=== PATIENT | male | born 1950 | race Caucasian/White ===

== ENCOUNTER 2021-02-10 21:53 | Inpatient (IN) | payer OTHER ==
[~2021-02-10] VITALS: Ht 172.7 cm; Wt 73.9 kg
--- NOTE | ~2021-02-10 | EMS ---
[address] [address] EMS Patient Care Report Name: ANUJ RAMIRES Room #: REG Maria Del Carmen#: [id number] Admission: 02/10/21 Attend Phys: Discharge: Date of : 52 Report #: [id number] THIS REPORT FOR: //name// Report Transmitted: 02/10/2021 21:[address] [facility] Incident [id number] @ 02/10/2021 21:12 Incident Location [address] [place] [address] Patient ANUJ RAMIRES Male, 70 Years 1950 Patient Address [address] [place] [address] Patient History Hypertension (HTN),Type 2 Diabetes, Patient Allergies Sulfa,Augmentin, Patient Medications Lisinopril, Atorvastatin, Metformin, Chief Complaint Chest pain Disposition Transported No Lights/[place] Dispatch Reason Chest Pain (Non-Traumatic) Transported To [facility] units dispatched to the residence of a 70 year old male pt with a chief complaint of chest pain. Upon arrival crew located pt sitting upright in a recliner. Pt presented with a patent airway and warm dry skin. Pt stated that he had a sudden onset of chest pain that started approx 10 min prior to calling [address] [address] EMS Patient Care Report Name: ANUJ RAMIRES Room #: REG ER Maria Del Carmen#: [id number] Admission: 02/10/21 Attend Phys: Discharge: Date of : 51 Report #: [id number] EMS. Pt stated that his chest felt "achy". Pt stated that he was also experiencing pain in both arms below his elbows. Pt rated pain a 4/10. Pt denied cardiac hx. 12 lead EKG was preformed. 12 lead showed wide spread ST segment depression. 15 lead EKG was preformed and showed no ST segment elevation at this time. Pt was placed on stretcher by crew and secured using straps. 20 g IV was established in pts left AC. 425 mg was administered orally. Pt stated that the pain in his chest and arms had subsided. Pt denied nausea but stated that he had been belching. Pt denied headache or dizziness. Pt stated that his pain had completely subsided and he felt "normal". Pt was transported without incident to [facility] and care was transferred to ED staff. Initial Vitals @21:19P: 106, @21:41P: 106,R: 12,CO: 0,SpO2: 97, @21:30P: 108,R: 16,BP: 198/117,SpO2: 97, @21:19P: 105,BP: 208/121, @21:23P: 106,R: 14, @21:16P: 106,BP: 200/113,Pain: 4/10,GCS: 15, @21:46P: 105,R: 22,BP: 209/116,Pain: 4/10,GCS: 15,CO: 0,SpO2: 96,Revised Trauma: 12, Assessments @21:17MENTAL:No Abnormalities,SKIN:No Abnormalities,HEENT:Head/Face: No Abnormalities,Eyes: No Abnormalities,Neck/Airway: No Abnormalities,LUNG SOUNDS:General: No Abnormalities,Left Upper: No Abnormalities,Right Upper: No Abnormalities,Left Lower: No Abnormalities,Right Lower: No Abnormalities,ABDOMEN:General: No Abnormalities,Left Upper: No Abnormalities,Right Upper: No Abnormalities,Left Lower: No Abnormalities,Right Lower: No Abnormalities,PELVIS//GI:No Abnormalities,EXTREMITIES:Capillary Refill: Right Upper: < 2 Sec,Left Arm: No Abnormalities,Right Arm: No Abnormalities,Left Leg: No Abnormalities,Right Leg: No Abnormalities,PULSE:Radial: 2+ Normal,NEURO:No Abnormalities,@21:25MENTAL:No Abnormalities,SKIN:No Abnormalities,HEENT:Head/Face: No Abnormalities,Eyes: No Abnormalities,Neck/Airway: No Abnormalities,LUNG SOUNDS:General: No Abnormalities,Left Upper: No Abnormalities,Right Upper: No Abnormalities,Left Lower: No Abnormalities,Right Lower: No Abnormalities,ABDOMEN:General: No Abnormalities,Left Upper: No Abnormalities,Right Upper: No Abnormalities,Left Lower: No Abnormalities,Right Lower: No Abnormalities,PELVIS//GI:No Abnormalities,EXTREMITIES:Capillary Refill: Right Upper: < 2 Sec,Left Arm: No Abnormalities,Right Arm: No Abnormalities,Left Leg: No Abnormalities,Right Leg: No Abnormalities,PULSE:Radial: 2+ Normal,NEURO:No Abnormalities, Impression Chest Pain / Discomfort [address] [address] EMS Patient Care Report Name: ANUJ RAMIRES Room #: REG CARINA Joyce#: [id number] Admission: 02/10/21 Attend Phys: Discharge: Date of : 52 Report #: [id number] Procedures @21:30Saline Lock 0cc (20 ga) Site: Antecubital-LeftResponse: UnchangedSucceeded@21:35Aspirin - 425 Milligrams (mg) - OralResponse: Unchanged@21:17ALS AssessmentResponse: UnchangedSucceeded@21:1912-Lead ECGResponse: UnchangedSucceeded@21:2312-Lead ECGResponse: UnchangedSucceeded Timeline 21:09,Call Received 21:09,Psap Call 21:12,Dispatched 21:12,En Route 21:15,On Scene 21:16,At Patient 21:16,BP: 200/113 M,PULSE: 106,RR: R,SPO2: Ox,ETCO2: ,BG: ,PAIN: 4,GCS: 15, 21:17,ALS Assessment,Response: UnchangedSucceeded, 21:19,12-Lead ECG,Response: UnchangedSucceeded, 21:19,BP: 208/121 M,PULSE: 105,RR: R,SPO2: Ox,ETCO2: ,BG: ,PAIN: ,GCS: , 21:19,BP: / M,PULSE: 106,RR: R,SPO2: Ox,ETCO2: ,BG: ,PAIN: ,GCS: , 21:23,12-Lead ECG,Response: UnchangedSucceeded, 21:23,BP: / M,PULSE: 106,RR: 14 R,SPO2: Ox,ETCO2: ,BG: ,PAIN: ,GCS: , 21:29,Depart Scene 21:30,Saline Lock 0cc 20 ga Site: Antecubital-Left,Response: UnchangedSucceeded, 21:30,BP: 198/117 M,PULSE: 108,RR: 16 R,SPO2: 97 Ox,ETCO2: ,BG: ,PAIN: ,GCS: , 21:35,Aspirin - 425 Milligrams (mg) - Oral,Response: Unchanged 21:41,BP: / M,PULSE: 106,RR: 12 R,SPO2: 97 Ox,ETCO2: ,BG: ,PAIN: ,GCS: , 21:46,BP: 209/116 M,PULSE: 105,RR: 22 R,SPO2: 96 Ox,ETCO2: ,BG: ,PAIN: 4,GCS: 15, 21:50,At Destination 22:04,Call Closed Disclaimer v1.1 Copyright 2020 [employer] This EMS Care Summary contains data elements from the applicable legal record (which may be displayed differently). It is designed to provide pertinent information for the following purposes: continuity of care, clinical quality, and state data reporting. The complete legal record is available to ED staff and administrators of the receiving hospital in [employer]'s Patient Tracker. All data is provided "as is."
[2021-02-10 21:57] VITALS: BP 198/100
[2021-02-10 22:19] LABS: ABSOLUTE NEUTROPHILS 5.7 thou/uL (1.4-8.2); BASOPHILS 0.9 % (0.0-2.0); EOSINOPHILS 1.5 % (0.0-3.0); HEMATOCRIT 47.5 % (42.0-52.0); HEMOGLOBIN 15.6 gm/dL (14.0-18.0); LYMPHOCYTES 27.2 % (24.0-44.0); MCH 28.9 pg (26.0-34.0); MCHC 32.8 g/dL (28.0-37.0); MCV 88.1 fL (80.0-100.0); MONOCYTES 6.7 % (1.0-8.0); PLATELET COUNT 247 thou/uL (150-400); POLYS 63.7 % (36.0-66.0); RBC 5.39 mil/uL (4.50-6.00); RDW 14.2 % (10.5-14.5)
[2021-02-10] MEDS ORDERED: METFORMIN HCL500 MG PO (22:25)
[2021-02-10] MEDS ORDERED: LISINOPRIL20 MG PO (22:26)
[2021-02-10] MEDS ORDERED: LIPITOR80 MG PO (22:26)
[2021-02-10 22:46] LABS: CALCIUM 9.2 mg/dL (8.5-10.1); POTASSIUM 3.8 mmol/L (3.5-5.1)
[2021-02-10 22:56] LABS: ALBUMIN 2.8 g/dL (3.4-5.0); TOTAL BILIRUBIN 0.6 mg/dL (0.2-1.0); TOTAL PROTEIN 6.2 g/dL (6.4-8.2)
[2021-02-11] VITALS (8 sets, daily range): BP systolic 121–153; BP diastolic 67–81
[2021-02-11 00:14] LABS: APTT 27.4 Seconds (24.5-32.8); INR 0.89; PROTIME 9.8 Seconds (10.5-12.1)
[2021-02-11 00:46] LABS: CHOLESTEROL 211 mg/dL (<200); HDL CHOLESTEROL 38 mg/dL (>40); TC:HDL 5.6 Ratio (Not establshd); TRIGLYCERIDE 464 mg/dL (<150); VLDL 93 mg/dL (<40)
[2021-02-11 00:56] LABS: SERUM ASSESSMENT Slight Lipemia
--- NOTE | 2021-02-11 05:22 | NUR ---
PT ADMITTED TO ROOM 214 AT AROUND 0100, PT IS AWAKE, A&OX4, SR WITH BBB ON TELEMETRY, DENIES CHEST PAIN, ADMISSION ASSESSMENT, HX AND EUCATION COMPLETED, PT IS ON HEPARIN GTT INFUSING AT 9ML/HR, PT REMAINED NPO FOR POSSIBLE CARDISC PROCEDURES THIS MORNING, WILL CONTINUE TO MONITOR AND FOLLOW PER POC
[2021-02-11 06:33] LABS: INR 0.91
[2021-02-11 06:45] LABS: APTT 40.1 Seconds (24.5-32.8)
--- NOTE | 2021-02-11 08:07 | EKG ---
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 : 1950 Requested By: Agapito Brandt Order Number: [id number] MD: Brannon Hahn Measurements Intervals [place] Rate: 100 P: 79 MD: 157 QRS: -92 QRSD: 129 T: 81 QT: 374 QTc: 483 Interpretive Statements Sinus tachycardia Probable left atrial enlargement Right bundle branch block Lateral ST segment depression No previous ECG available for comparison Electronically Signed On 02-11-2021 8:06:57 CDT by Brannon Hahn [email or web address] <ELECTRONICALLY SIGNED> By: Brannon Hahn MD, [facility] 02/11/21 08 [phone] Brannon Hahn MD, FACC /EPI
--- NOTE | 2021-02-11 10:00 | 2DMMODE ---
[facility] [place] [address] [place] [address] 2 D/M-MODE ECHOCARDIOGRAM Name: ANUJ RAMIRES Room #: 214-P ADM IN M.R.#: [id number] Admission: 02/10/21 Attend Phys: Gael Saeed MD Discharge: Date of : 51 Report #: [id number] THIS REPORT FOR: cc: Anthony Benítez MD, Kirk D. MD Park, Jin S. MD ~ APPROVED REPORT Study performed: 02/11/2021 08:09:04 EXAM: Comprehensive 2D, Doppler, and color-flow Echocardiogram Patient Location: Bedside Room #: 214 Status: routine BSA: 1.88 HR: 59 bpm BP: 126/72 mmHg Rhythm: NSR Other Information Study Quality: Good Indications Chest Pain NSTEMI. Hx: HTN, HLP, tob abuse. 2D Dimensions IVSd: 12.43 (7-11mm) LVOT Diam: 20.51 (18-24mm) LVDd: 44.52 mm PWd: 11.85 (7-11mm) Ascending Ao: 32.19 (22-36mm) LVDs: 33.70 (25-40mm) Left Atrium: 29.31 (27-40mm) Aortic Root: 37.97 mm Volumes Left Atrial Volume (Systole) Single Plane 4CH: 31.61 mL Single Plane 2CH: 41.49 mL LA ESV Index: 21.00 mL/m2 Aortic Valve AoV Peak Titi.: 1.66 m/s AO Peak Gr.: 11.07 mmHg LVOT Max P.07 mmHg LVOT Max V: 1.01 m/s [facility] [address] [address] 2 D/M-MODE ECHOCARDIOGRAM Name: RAMIRESANUJ ZHOU Room #: 214-P [facility] IN .R.#: [id number] Admission: 02/10/21 Attend Phys: Gael Saeed MD Discharge: Date of : 51 Report #: [id number] JANNY Vmax: 2.00 cm2 Mitral Valve E/A Ratio: 0.6 MV Decel. Time: 250.25 ms MV E Max Titi.: 0.67 m/s MV A Titi.: 1.12 m/s MV PHT: 72.57 ms IVRT: 106.11 ms Pulmonary Vein P Vein S: 0.76 m/s P Vein A: 0.38 m/s P Vein D: 0.38 m/s P Vein A Dur.: 138.4 msec P Vein S/D Ratio: 2.00 Tricuspid Valve RAP Estimate: 5.00 mmHg Left Ventricle The left ventricle is normal size. Regional wall motion abnormalities are noted. Mid to distal anteroseptal hypokinesis. Mild concentric left ventricular hypertrophy. Left ventricular systolic function is mildly decreased. LVEF is 45%. Mild diastolic dysfunction is present (impaired relaxation pattern). Right Ventricle The right ventricle is normal size. The right ventricular systolic function is normal. Atria The left atrium size is normal. The right atrium size is normal. Aortic Valve The Aortic valve is sclerotic. Trace aortic regurgitation. There is no aortic valvular stenosis. Mitral Valve The mitral valve is normal in structure. There is no mitral valve regurgitation noted. No evidence of mitral valve stenosis. Tricuspid Valve The tricuspid valve is normal in structure. There is no tricuspid valve regurgitation noted. Unable to assess PA pressure. Pulmonic Valve [facility] [address] [place] [address] 2 D/M-MODE ECHOCARDIOGRAM Name: ANUJ RAMIRES ZHOU Room #: 214-P [facility] IN M.R.#: [id number] Admission: 02/10/21 Attend Phys: Gael Saeed MD Discharge: Date of : 51 Report #: [id number] The pulmonary valve is normal in structure. Trace pulmonic regurgitation. Great Vessels The aortic root is normal in size. The ascending aorta is normal in size. IVC is normal in size and collapses >50% with inspiration. Pericardium There is no pericardial effusion. <Conclusion> The left ventricle is normal size. Mild concentric left ventricular hypertrophy. Left ventricular systolic function is mildly decreased. Mild diastolic dysfunction is present (impaired relaxation pattern). The right ventricle is normal size. The left atrium size is normal. Trace aortic regurgitation. There is no mitral valve regurgitation noted. <ELECTRONICALLY SIGNED> By: Rogerio Adam MD 02/11/21 1000 1000 1000 Rogerio Adam MD /INF
--- NOTE | 2021-02-11 11:28 | CATHLAB ---
[facility] [place] [address] INVASIVE PROCEDURE REPORT Name: ANUJ RAMIRES Room #: 214-P ADM IN M.R.#: [id number] Admission: 02/10/21 Attend Phys: Gael Saeed MD Discharge: Date of : 51 Report #: [id number] THIS REPORT FOR: cc: Anthony Benítez MD, Kirk D. MD Park, Jin S. MD ~ APPROVED REPORT Study performed: 02/11/2021 09:00:23 Patient Details Patient Status: In-Patient Room #: 214 The patient is a 70 year-old male Event Personnel Rogerio Adam Tv Host, Batsheva Soler RTR Monitor, Asha Ba RTR ScrubGerman Alison RT(R)() Brazing Machine Feeder, Eri Aranda RN geodesy teacher Performed Left Heart Cath w/or w/o Coronaries [id number] [facility] Art Access - R femoral artery* Hemostasis w/ Mynx 24890 Initial Mod Sed Same Phys/QHP Gr5y [id number] 18141 Mod Sed Same Phys/QHP Ea 319389 Indication Non-STEMI , Dyspnea, Chest pain Risk Factors Hypercholesterolemia, Hypertension, Diabetes Tobacco History () Procedure Narrative The Right Groin^ was infiltrated with 1% Lidocaine subcutaneous anesthesia. A PINNACLE 6FR Sheath #[id number] sheath was inserted into the RFA^. Coronary angiography was performed using coronary diagnostic catheters. The right coronary system was accessed and visualized with a JR4 catheter. The left coronary system was accessed and visualized with a JL4 catheter. The left ventricle was accessed and visualized with a PIGTAIL catheter. Left ventriculogram was performed in 30 degree projection. Closure device was deployed with a Fr MYNXGRIP 6/7F #[id number]. The patient tolerated the procedure well and there were no complications associated with the procedure. There was no hematoma. [facility] [place] [address] INVASIVE PROCEDURE REPORT Name: ANUJ RAMIRES [facility] Room #: 214-P [facility] IN M.R.#: [id number] Admission: 02/10/21 Attend Phys: Gael Saeed MD Discharge: Date of : 51 Report #: [id number] Intraoperative Conscious Sedation Sedation start time: 9:02 Case end Time: 9:57 Fentanyl 100 mcg Versed 1 mg Fluoro Time: 4.50 minutes Dose: DAP 5236.50 cGycm2 608 mGy Contrast Type and Amount: Omnipaque 135 ml Coronary Angiography The patient's coronary anatomy is left dominant. Diagnostic Cath Left Main The left main artery is a large-caliber vessel, patent with no flow-limiting lesions. LAD The LAD is a moderate-sized caliber vessel, traverses the anterior wall and wraps around the apex. There is a severe stenosis at the ostium, 80 to 90%. Diagonal 1 This has an early takeoff from the LAD, has a severe proximal stenosis. Diagonal 2 This is a small to moderate-sized caliber vessel with mild disease proximally, divides into 2 branches. Circumflex The left circumflex artery is a moderate-sized caliber vessel, dominant as it supplies the left PDA. There is a severe occlusion in the proximal segment, 70%. OM1 This is a moderate-sized caliber vessel, has a severe stenosis in the proximal segment, 80%. After the obstruction, this vessel divides into 2 branches, supplying the lateral and inferolateral segments. OM2 This is a small to moderate-sized caliber vessel, with no flow-limiting lesions. L PDA This is a moderate-sized caliber vessel, patent with no flow-limiting lesions. Right Coronary The RCA is a small, nondominant vessel with severe proximal stenosis. Left Ventriculography The left ventricle is normal in size with Decreased contractility. The left ventricular ejection fraction is estimated to be 40-45%. Left ventricular wall motion abnormalities are present. There is hypokinesis of the anterolateral segment. Hemodynamics The aortic pressure is 149/65 mmHg with a mean of 62 mmHg. The left ventricular pressure is 153/7 mmHg with a mean of mmHg. The left [facility] [address] [place] [address] INVASIVE PROCEDURE REPORT Name: ANUJ RAMIRES Room #: 214-P [facility] IN M.R.#: [id number] Admission: 02/10/21 Attend Phys: Gael Saeed MD Discharge: Date of : 51 Report #: [id number] ventricular end diastolic pressure is 21 mmHg. Conclusion 1. There is a severe ostial LAD stenosis. 2. The left circumflex is a dominant vessel with a severe occlusion in the proximal segment. 3. There is a severe occlusion in the first obtuse marginal artery. 4. The RCA is a small, nondominant vessel with a severe stenosis. 5. There is mild to moderate segmental LV dysfunction. 6. Recommend cardiothoracic consultation for CABG. 7. Recommend aggressive risk factor management, including complete tobacco cessation. <ELECTRONICALLY SIGNED> By: Rogerio Adam MD 02/11/21 1128 1128 1128 Rogerio Adam MD /INF
[2021-02-11 14:25] LABS: URINE BILIRUBIN NEGATIVE (Negative); URINE BLOOD 1+ (Negative); URINE CLARITY CLEAR; URINE COLOR YELLOW; URINE GLUCOSE-RANDOM* NEGATIVE (Negative); URINE KETONES NEGATIVE (Negative); URINE LEUKOCYTES-REFLEX NEGATIVE (Negative); URINE NITRITE-REFLEX NEGATIVE (Negative); URINE PROTEIN (DIPSTICK) 2+ (Negative); URINE UROBILINOGEN 0.2 E.U./dl (0.2-1.0)
[2021-02-11 14:51] LABS: BACTERIA-REFLEX 1-9 Few /HPF (None Seen); MUCUS 0-3 Light strn/LPF (None Seen); SQUAMOUS 4-10 Moderate /LPF (0-3); URINE RBC 3-10 Few /HPF (NONE SEEN); URINE WBC-REFLEX 0-5 Rare /HPF (0-5)
[2021-02-12 00:06] LABS: GLYCOHEMOGLOBIN (HGB A1C) 8.5 % (4.8-5.6)
[2021-02-12 03:08] LABS: HEMATOCRIT 40.4 % (42.0-52.0); HEMOGLOBIN 13.7 gm/dL (14.0-18.0); MCH 29.8 pg (26.0-34.0); MCHC 33.9 g/dL (28.0-37.0); MCV 87.8 fL (80.0-100.0); RBC 4.6 mil/uL (4.50-6.00); WBC 10.3 thou/uL (4.0-11.0)
[2021-02-12 03:31] LABS: CREATININE 1.1 mg/dL (0.7-1.3); POTASSIUM 3.9 mmol/L (3.5-5.1)
[2021-02-12 04:56] VITALS: BP 152/89
--- NOTE | 2021-02-12 06:48 | NUR ---
ASSUMED PT CARE AT 1900, ALERT AND ORIENTED, DENIES CP, ASSESSMENTS CHARTED, SR/BBB, NO ACUTE DISTRESS NOTED, PLAN FOR CABG ON MONDAY, WILL PASS ON REPORT
[2021-02-12 08:00] VITALS: BP 149/69
[2021-02-12 12:10] VITALS: BP 131/81
--- NOTE | 2021-02-12 14:41 | NUR ---
NOTED PLAN FOR CABG Monday02/15/21. RECEIVED VM FROM [facility] REMEDIATION PROJECT ENGINEER BERT. HE IS AVAILABLE FOR ANY DC PLANNING NEEDS AT [phone].
--- NOTE | 2021-02-12 15:23 | NUR ---
Chart reviewed and case discussed with the care team. Pt admitted with cp and had cardiac cath resulting in CTS consult. Open heart surgery schedule for Monday. Pt is currently on CCU on a heprin gtt. He is a&ox4 and lives with his . 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 He is a pack a day smoker and has sign family/work related stress. He is currently insured under a commerical aetna plan as he is still working. He has medicare part A secondary as well. His pcp is Dr. Anthony Banegas. Will follow along and reassess for dc plannings pending his postop progress.
[2021-02-12 15:35] VITALS: BP 139/72
[2021-02-12 19:59] VITALS: BP 151/80
[2021-02-13 04:30] VITALS: BP 126/58
--- NOTE | 2021-02-13 07:39 | NUR ---
PATIENT VSS, HEART MONITOR- SINUS BRADYCARDIA WITH BUNDLE BRANCH BLOCK. HEPARIN DRIP TITRATED PER PROTOCOL. SLEPT WELL WITH OUT INCIDENT OR C/O PAIN. CONTINUE POC.
[2021-02-13 07:55] VITALS: BP 129/66
[2021-02-13 11:25] VITALS: BP 119/64
--- NOTE | 2021-02-13 12:11 | HC ---
[facility] [place] [address] [place] [address] CONSULTATION Name: ANUJ RAMIRES Room #: 214-P ADM IN M.R.#: [id number] Admission: 02/10/21 Attend Phys: Gael Saeed MD Discharge: Date of : 51 Report #: [id number] THIS REPORT FOR: cc: Anthony Benítez MD, Kirk D. MD Forman, John M. MD ~ DATE OF SERVICE: 02/11/2021 We were asked to see the patient by Dr. Adam. HISTORY OF PRESENT ILLNESS: The patient is a 70-year-old with important coronary artery disease. The patient was admitted on 02/10/2021 with sudden onset chest pain. The patient states he had some mild chest discomfort during the day that seemed to resolve on itself, but the pain returned later and the patient sought help in the Emergency Department and the patient was brought by ambulance. Cardiac catheterization yesterday reveals important 3-vessel disease including 90% ostial LAD stenosis and high-grade stenosis, moderate size ramus. Left ventricular function is satisfactory overall. PAST HISTORY: Significant for diabetes mellitus, hypertension, and hyperlipidemia. SOCIAL HISTORY: The patient is a longtime smoker. 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 MEDICATIONS AT HOME: Includes metformin, atorvastatin, lisinopril. ALLERGIES: THE PATIENT STATES HE IS ALLERGIC TO AUGMENTIN, but he has had penicillin in the past without any difficulty. THE PATIENT IS ALSO ALLERGIC TO SULFA. SOCIAL HISTORY: As mentioned, tobacco smoker. REVIEW OF SYSTEMS: GENERAL: Denies fever or chills. EYES: Denies vision change. HENT: Denies headache, hearing problems, sinus problems. RESPIRATORY: Denies shortness of breath or cough. CARDIAC: As mentioned, acute onset chest pain, no palpitations. GASTROINTESTINAL: Denies nausea, vomiting, or diarrhea. GENITOURINARY: Denies burning, frequency, urgency. MUSCULOSKELETAL: Denies bone or joint pain. SKIN: Denies rash or infection. NEUROLOGIC: Denies motor or sensory dysfunction. [facility] [address] [place] [address] CONSULTATION Name: ANUJ RAMIRES [facility] Room #: 214-P [facility] IN M.R.#: [id number] Admission: 02/10/21 Attend Phys: Gael Saeed MD Discharge: Date of : 51 Report #: [id number] ENDOCRINE: Denies goiter or tremor. HEMATOLOGIC: Denies anemia or bruisability. PHYSICAL EXAMINATION: Status post cardiac catheterization, temperature was 37 degrees, heart rate 59, blood pressure 123/69. HEENT: No scleral icterus. No arcus. NECK: No mass, no bruit. CHEST: Clear to auscultation. HEART: Rhythm regular, no murmur. ABDOMEN: Soft. EXTREMITIES: No clubbing, cyanosis or edema. SKIN: No rash or infection. No obvious saphenous vein problems, 2+ distal pulses. ASSESSMENT AND PLAN: The patient has important 3-vessel coronary artery disease with a particular LAD ostial stenosis. I have discussed the risks and details of coronary artery bypass, options and alternatives, risks include, but are not limited to, bleeding, infection, anesthesia risks, heart and lung problems, stroke, . The patient and understand all of this and wished to proceed. We will try to arrange surgery for Monday. Thank you for the consult. <ELECTRONICALLY SIGNED> By: Dwayne Herbert MD 02/13/21 1211 1335 1423 Dwayne Herbetr MD /nt
[2021-02-13 15:50] VITALS: BP 120/60
--- NOTE | 2021-02-13 17:21 | NUR ---
ASSUMED CARE SHIFT CHANGE. VSS DENIES CP. O2 SATS WNL RA. HEPARIN GTT CONTINUES PER ORDER. SPOUSE UPDATED ON POC. PT UP WALKING FITO WELL. PLAN FOR C CABG MONDAY. PT SHOWERED THIS SHIFT. DENIES NEEDS CURRENTLY. CONT POC WILL PASS REPORT.
[2021-02-13 20:25] VITALS: BP 145/69
[2021-02-14 04:03] VITALS: BP 122/57
[2021-02-14 08:35] VITALS: BP 129/67
--- NOTE | 2021-02-14 08:42 | NUR ---
PT UP ADLIB IN ROOM, RIGHT GROIN DRESSING REMAINS CDI, VSS, HEPARIN INFUSING, DEAD MAIL CHECKER C/O PAIN, PLAN CABG FOR MONDAY, WILL CON'T TO MONITOR PER PPOC.
[2021-02-14 16:40] VITALS: BP 115/61
[2021-02-14 17:10] VITALS: BP 135/64
--- NOTE | 2021-02-14 17:21 | NUR ---
PT REMIANED ON HEPARIN THROUGHOUT SHIFT PTT 51.3 - NO CHANGE IN HEPARIN RATE. PT DENIES PAIN THROUGHOUT SHIFT, VITALS SIGNS REMAINED STABLE, AFEBRILE. PT IS GOING FOR CARDIAC CATH IN AM AND IS TO BE NPO AFTER MIDNIGHT. SPOUSE HAS BEEN AT BEDSIDE THROUGHOUT SHIFT.
[2021-02-14 19:58] VITALS: BP 145/72
[2021-02-15 04:01] VITALS: BP 167/77
[2021-02-15 12:57] LABS: HEMATOCRIT 26.7 % (42.0-52.0); MCH 29.3 pg (26.0-34.0); MCHC 33.4 g/dL (28.0-37.0); MCV 87.5 fL (80.0-100.0); RBC 3.05 mil/uL (4.50-6.00); RDW 13.9 % (10.5-14.5); WBC 5.9 thou/uL (4.0-11.0)
[2021-02-15 13:04] LABS: HEMOGLOBIN 8.9 gm/dL (14.0-18.0)
[2021-02-15 13:11] LABS: PROTIME 14.8 Seconds (10.5-12.1)
[2021-02-15 13:14] LABS: INR 1.38
[2021-02-15 13:15] LABS: APTT 28.1 Seconds (24.5-32.8)
[2021-02-15 13:37] LABS: POC BE 4 mmol/L (-2.0 to +3.0); POC CA IONIZED 4.1 mg/dL (4.5-5.3); POC GLUCOSE 130 mg/dL (70-99); POC HCO3 27.8 mmol/L (22.0-26.0); POC HEMOGLOBIN 9.5 g/dL (14.0-18.0); POC POTASSIUM 4.2 mmol/L (3.5-5.1); POC SODIUM 140 mmol/L (136-145)
[2021-02-15 13:38] LABS: POC BE 3 mmol/L (-2.0 to +3.0); POC CA IONIZED 4.3 mg/dL (4.5-5.3); POC GLUCOSE 159 mg/dL (70-99); POC HCO3 27.9 mmol/L (22.0-26.0); POC HEMOGLOBIN 8.8 g/dL (14.0-18.0); POC POTASSIUM 4.5 mmol/L (3.5-5.1); POC SODIUM 140 mmol/L (136-145); POC pCO2 44.9 mmHg (35.0-45.0); POC pH 7.401 (7.360-7.450)
[2021-02-15 13:38] LABS: POC BE 2 mmol/L (-2.0 to +3.0); POC CA IONIZED 4.8 mg/dL (4.5-5.3); POC GLUCOSE 153 mg/dL (70-99); POC HCO3 26.5 mmol/L (22.0-26.0); POC HEMOGLOBIN 12.2 g/dL (14.0-18.0); POC POTASSIUM 3.9 mmol/L (3.5-5.1); POC SODIUM 140 mmol/L (136-145); POC pH 7.409 (7.360-7.450)
[2021-02-15 13:38] LABS: POC BE 2 mmol/L (-2.0 to +3.0); POC CA IONIZED 4.8 mg/dL (4.5-5.3); POC GLUCOSE 172 mg/dL (70-99); POC HCO3 26.1 mmol/L (22.0-26.0); POC HEMOGLOBIN 12.9 g/dL (14.0-18.0); POC POTASSIUM 4.1 mmol/L (3.5-5.1); POC SODIUM 139 mmol/L (136-145); POC pCO2 37.7 mmHg (35.0-45.0); POC pH 7.448 (7.360-7.450)
[2021-02-15 13:38] LABS: POC BE -1 mmol/L (-2.0 to +3.0); POC CA IONIZED 4.6 mg/dL (4.5-5.3); POC GLUCOSE 132 mg/dL (70-99); POC HCO3 23.8 mmol/L (22.0-26.0); POC HEMOGLOBIN 10.2 g/dL (14.0-18.0); POC POTASSIUM 4.1 mmol/L (3.5-5.1); POC SODIUM 143 mmol/L (136-145); POC pCO2 36.7 mmHg (35.0-45.0)
[2021-02-15 13:38] LABS: POC BE 3 mmol/L (-2.0 to +3.0); POC CA IONIZED 4.2 mg/dL (4.5-5.3); POC GLUCOSE 142 mg/dL (70-99); POC HCO3 26.6 mmol/L (22.0-26.0); POC HEMOGLOBIN 8.8 g/dL (14.0-18.0); POC POTASSIUM 4.3 mmol/L (3.5-5.1); POC SODIUM 140 mmol/L (136-145); POC pH 7.442 (7.360-7.450)
[2021-02-15 13:38] LABS: POC BE 2 mmol/L (-2.0 to +3.0); POC CA IONIZED 4.2 mg/dL (4.5-5.3); POC GLUCOSE 153 mg/dL (70-99); POC HCO3 26.9 mmol/L (22.0-26.0); POC HEMOGLOBIN 8.5 g/dL (14.0-18.0); POC POTASSIUM 4.5 mmol/L (3.5-5.1); POC SODIUM 141 mmol/L (136-145); POC pCO2 41.9 mmHg (35.0-45.0); POC pH 7.415 (7.360-7.450)
[2021-02-15 13:39] LABS: POC BE 1 mmol/L (-2.0 to +3.0); POC CA IONIZED 4.9 mg/dL (4.5-5.3); POC GLUCOSE 148 mg/dL (70-99); POC HCO3 25.1 mmol/L (22.0-26.0); POC HEMOGLOBIN 8.8 g/dL (14.0-18.0); POC POTASSIUM 4.3 mmol/L (3.5-5.1); POC SODIUM 142 mmol/L (136-145); POC pH 7.416 (7.360-7.450)
[2021-02-15 14:24] LABS: HEMATOCRIT 33.8 % (42.0-52.0); MCH 29.2 pg (26.0-34.0); MCHC 33.2 g/dL (28.0-37.0); RBC 3.84 mil/uL (4.50-6.00); RDW 14.1 % (10.5-14.5); WBC 9.9 thou/uL (4.0-11.0)
[2021-02-15 14:25] LABS: HEMOGLOBIN 11.2 gm/dL (14.0-18.0)
[2021-02-15 14:30] LABS: BE(vivo) -2.8 mmol/L (-2 to +3); HCO3 21.5 mmol/L (22.0-26.0); PCO2 35.9 mmHg (35.0-45.0); PO2 70.8 mmHg (80.0-100.0); pH 7.396 (7.360-7.450); sO2 94.3 % (92.0-98.0)
[2021-02-15 14:34] LABS: CALCIUM 7.9 mg/dL (8.5-10.1); MAGNESIUM 2.4 mg/dL (1.8-2.4); POTASSIUM 4.2 mmol/L (3.5-5.1)
--- NOTE | 2021-02-15 15:55 | NUR ---
PT ARRIVED FROM OR TO ICU AT 1400. PT ACCOMPANIED BY NURSING STAFF, ANESTHESIOLOGIST AND . PT ON PRECEDEX GTT ON ARRIVAL TO ICU. PT CONNECTED TO ICU MONITORS AND VENTILATOR. CONTINUE TO MONITOR.
[2021-02-15 16:33] LABS: BE(vivo) -2.9 mmol/L (-2 to +3); HCO3 22.5 mmol/L (22.0-26.0); PCO2 41.3 mmHg (35.0-45.0); PO2 89.8 mmHg (80.0-100.0); pH 7.354 (7.360-7.450); sO2 96.5 % (92.0-98.0)
--- NOTE | 2021-02-15 16:33 | EKG ---
[address] [place] [address] ELECTROCARDIOGRAM REPORT Name: ANUJ RAMIRES Room #: 248-P ADM IN M.R.#: [id number] Admission: 02/10/21 Attend Phys: Gael Saeed MD Discharge: Date of : 51 Report #: [id number] [facility] Test Date: 2021-02-15 Test Time: 15:46:00 Pat Name: ANUJ RAMIRES Department: Room: 248 P Gender: M Nightman: : 1950 Requested By: Dwayne Herbert Order Number: [id number] MD: Ty Montes Measurements Intervals [place] Rate: 81 P: 51 ID: [id number] QRS: -51 QRSD: 132 T: 104 QT: 415 QTc: 482 Interpretive Statements Sinus rhythm RBBB Abnrm T, consider ischemia, anterolateral lds Compared to ECG 02/10/2021 21:59:36 Left anterior fascicular block now present Possible ischemia now present Sinus tachycardia no longer present Electronically Signed On 02-15-2021 16:33:09 CDT by Ty Montes [email or web address] <ELECTRONICALLY SIGNED> By: Ty Montes MD, [facility] 02/15/21 1633 1546 1546 Ty Montes MD, [facility] /EPI
[2021-02-15 16:49] LABS: APTT 28.1 Seconds (24.5-32.8); INR 1.05; PROTIME 11.4 Seconds (10.5-12.1)
[2021-02-15 17:10] LABS: BE(vivo) -2.4 mmol/L (-2 to +3); HCO3 22.4 mmol/L (22.0-26.0); PCO2 38.9 mmHg (35.0-45.0); PO2 72.4 mmHg (80.0-100.0); pH 7.379 (7.360-7.450); sO2 94.4 % (92.0-98.0)
[2021-02-15 19:00] VITALS: BP 98/58
--- NOTE | 2021-02-15 19:54 | NUR ---
Pt care assumed at 191. Pt very restles, c/o of sternal incisional pain which he rates 01/29. Pt remains on Precedex for anxiety and aggitation. Fentanyl given for pain with adequate relief obtained.
[2021-02-15 20:00] VITALS: BP 94/56
--- NOTE | 2021-02-15 20:48 | NUR ---
Dr. Mike here to see patient at 2030. Giving 250 cc 5% albumin per physician order.
[2021-02-15 21:00] VITALS: BP 94/59
[2021-02-15 22:00] VITALS: BP 91/49
[2021-02-15 23:02] VITALS: BP 114/72
--- NOTE | 2021-02-15 23:16 | NUR ---
Between 0 and 0 pt dropped heart rate down to 58-59, sinus bradycardia with BBB, SBP per arterial line in 90's with MAP 58-62. Precedex titrated off and Amiodorone shut off, pt also given second bottle of 5% albumin. ABP still borderline so Levophed started at 2300 at 3 mcg/min. SBP per art line now 106-110, MAP 68-69, and heart rate sinus rhythm with BBB in 60's. 2314, pt changed from face shield at 40% to nasal canula at 4 L, sat 94-98%.
[2021-02-16] VITALS (8 sets, daily range): BP systolic 87–126; BP diastolic 53–66
[2021-02-16 05:31] LABS: HEMATOCRIT 31.5 % (42.0-52.0); HEMOGLOBIN 10.5 gm/dL (14.0-18.0); MCH 29.8 pg (26.0-34.0); MCHC 33.5 g/dL (28.0-37.0); RBC 3.54 mil/uL (4.50-6.00); RDW 13.9 % (10.5-14.5); WBC 11.3 thou/uL (4.0-11.0)
--- NOTE | 2021-02-16 06:11 | NUR ---
Pt progressing toward goals. Pain adequately controlled with Fentanyl. Able to titrate O2 down from 40% face shield to 3 L nasal canula, sat currently 94-96%. Breath sounds initially coarse throughout, but now clear, diminished at the bases. Mediastinal CT x2 and Left plural CT x1 remain patent to -20 cm H2O suction. Only 95 cc out from mediastinal tubes, 40 cc out from plural. Able to wean pt off Precedex and Levophed. Hemodynamics within acceptable parameters. Blood sugar well controlled with insulin gtt. Able to turn off insulin gtt at 0400, blood sugar staying in 120's. Urine output adequate, 500 cc for this shift.
--- NOTE | 2021-02-16 07:59 | EKG ---
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1950 Requested By: Dwayne Herbert Order Number: [id number] MD: Brannon Hahn Measurements Intervals [place] Rate: 80 P: 0 AR: 124 QRS: -49 QRSD: 123 T: 92 QT: 402 QTc: 464 Interpretive Statements Sinus rhythm RBBB and LAFB Nonspecific T abnormalities, lateral leads Compared to ECG 02/15/2021 15:46:00 No significant change was found Electronically Signed On 02-16-2021 7:59:32 CDT by Brannon Hahn [email or web address] <ELECTRONICALLY SIGNED> By: Brannon Hahn MD, [facility] 02/16/21 0759 4 4 Brannon Hahn MD, [facility] /EPI
--- NOTE | 2021-02-16 08:37 | NUR ---
Assess for length of stay and RD consult received for diet education. NSTEMI and s/p CABG on 02/15. Diet newly advanced and pt was eating well prior to surgery. Hx diabetes, uncontrolled, A1C 8.5, and HLD with chol 211, triglycerides 464. Will address nutrition education needs once out of ICU and at more appropriate time.
--- NOTE | 2021-02-16 10:36 | NUR ---
0710-OOB W ASSIST X2. GAIT STEADY,FOLLOWS DIRECTION WELL.--VW 0745-'S MARK & CARLI IN.--VW 1030-ENC PULM TOILET-GD SPONT COUGH (+ SMOKER'S COUGH). FAIR COUGH W SPLINTING OF STERNAL INCISION. DOING I.S. 500-750ML W LOTS OF ENC. STOOD PT,RESETTLED MORE COMF IN CHAIR. AT BEDSIDE. SPOKE W LAB RE:AM CHEM-STATES SPECIMEN HEMOLYZED-RESENT. SPOKE W RE:BPS 160-170'S. WAITING ON LABS TO RESTART LISINOPRIL.--VW
[2021-02-16 11:30] LABS: CALCIUM 7.8 mg/dL (8.5-10.1); CREATININE 1.3 mg/dL (0.7-1.3); MAGNESIUM 2.2 mg/dL (1.8-2.4); POTASSIUM 3.9 mmol/L (3.5-5.1)
--- NOTE | 2021-02-16 11:45 | NUR ---
Discussed during los and unit rounds. post op CABG. O2 per nasal cannula. Will cont following as needed for dc needs.
--- NOTE | 2021-02-16 13:35 | NUR ---
POST-OP CABG PAIN EXACERBATED BY DEEP BREATHING/COUGHING INHIBITING PATIENT FROM PERFORMING INCENTIVE SPIROMETRY, THOUGH ENCOURAGED, PT REQUIRES NUMEROUS REASSURANCE AND IS QUICK TO GIVE UP, PT STATED THAT HE WILL TRY AGAIN, RN CONTINUING TO PROVIDE ENCOURAGEMENT AND REST. PT IS ABLE TO PRODUCE MORE SPUTUM WITH COUGHS AT THIS TIME.
[2021-02-17] VITALS (17 sets, daily range): BP systolic 118–142; BP diastolic 41–79
[2021-02-17 05:54] LABS: HEMATOCRIT 29.7 % (42.0-52.0); HEMOGLOBIN 9.9 gm/dL (14.0-18.0); MCH 29.6 pg (26.0-34.0); MCHC 33.2 g/dL (28.0-37.0); MCV 89.1 fL (80.0-100.0); RBC 3.33 mil/uL (4.50-6.00); RDW 14.1 % (10.5-14.5); WBC 11.3 thou/uL (4.0-11.0)
[2021-02-17 06:22] LABS: ALBUMIN 2.9 g/dL (3.4-5.0); CALCIUM 7.9 mg/dL (8.5-10.1); CREATININE 1.3 mg/dL (0.7-1.3); TOTAL BILIRUBIN 1.5 mg/dL (0.2-1.0); TOTAL PROTEIN 5.5 g/dL (6.4-8.2)
--- NOTE | 2021-02-17 07:32 | NUR ---
RN ARRIVAL TO UNIT, PT STATES PAIN LEVEL OF 5 AT REST AND 8 WHEN COUGHING, CALM/ALERT/DROWSY, CHEST TUBE OUTPUT MINIMAL OVERNIGHT INCENTIVE SPIROMETRY PERFORMED; 0.5L, PT IS COUGHING BUT NON-PRODUCTIVE AT THIS TIME, STATES CHEST PAIN FROM COUGHING IS IMPEDING FROM EXPELLING, PAIN CONTROL CONTINUES TO BE AN ISSUE.
--- NOTE | 2021-02-17 16:37 | NUR ---
insurance called, if need assist with dcp can call [phone] if needed.
--- NOTE | 2021-02-17 19:24 | NUR ---
This RN to assume care at 1900. Patient reports significant pain in back and chest rating 8/10. This RN spoke to TRANG Del Rio at 1915 and was referred to Dr. Herbert. RN spoke to Dr. Herbert at 1920, no orders received at this time. Physician in route. Will continue to monitor.
[2021-02-18] VITALS (15 sets, daily range): BP systolic 108–156; BP diastolic 61–118
--- NOTE | 2021-02-18 08:20 | NUR ---
DR FLORES IN TO EXAMINE PATIENT. MOVED CHEST TUBE TO WATER SEAL.
--- NOTE | 2021-02-18 10:26 | NUR ---
O2 SAT IN THE MID 90'S, O2 SLOWLY TAPPERED DOWN. IS AND COUGHING ENCOURAGED. PAIN MANAGED WITH THE LIDOCANE PATCH AND ORAL PAIN MEDICATION. AT BEDSIDE, UPDATED ON HER 'S STATUS AND POC. REASSURANCE GIVEN.
--- NOTE | 2021-02-18 19:11 | NUR ---
PATIENT IS PROGRESSING TOWARDS OUTCOME GOALS. PLEASE REFER TO ASSESSMENTS.
[2021-02-19] VITALS (20 sets, daily range): BP systolic 74–125; BP diastolic 50–69
[2021-02-19 05:22] LABS: ABSOLUTE NEUTROPHILS 8.1 thou/uL (1.4-8.2); BASOPHILS 0.3 % (0.0-2.0); EOSINOPHILS 0.9 % (0.0-3.0); HEMATOCRIT 33.5 % (42.0-52.0); LYMPHOCYTES 12.3 % (24.0-44.0); MCH 29.7 pg (26.0-34.0); MCHC 32.7 g/dL (28.0-37.0); MCV 90.8 fL (80.0-100.0); MONOCYTES 9.8 % (1.0-8.0); PLATELET COUNT 177 thou/uL (150-400); POLYS 76.7 % (36.0-66.0); RDW 14.4 % (10.5-14.5); WBC 10.5 thou/uL (4.0-11.0)
[2021-02-19 06:25] LABS: ALBUMIN 2.1 g/dL (3.4-5.0); CALCIUM 8.5 mg/dL (8.5-10.1); CREATININE 1.2 mg/dL (0.7-1.3); POTASSIUM 4.7 mmol/L (3.5-5.1); TOTAL BILIRUBIN 1.4 mg/dL (0.2-1.0); TOTAL PROTEIN 5.5 g/dL (6.4-8.2)
--- NOTE | 2021-02-19 08:18 | EKG ---
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1950 Requested By: Aj Brennan Order Number: [id number] MD: Ty Montes Measurements Intervals [place] Rate: 71 P: 32 [place]: 148 QRS: -20 QRSD: 128 T: 48 QT: 465 QTc: 506 Interpretive Statements Sinus rhythm IVCD, consider atypical RBBB Compared to ECG 02/16/2021 07:25:32 ST (T wave) deviation now present Left anterior fascicular block no longer present T-wave abnormality no longer present Electronically Signed On 02-19-2021 8:18:21 CDT by Ty Montes [email or web address] <ELECTRONICALLY SIGNED> By: Ty Montes MD, FACC 02/19/2118 4 4 Ty Montes MD, FAC /EPI
--- NOTE | 2021-02-19 11:05 | NUR ---
899 PATIENT NOTED TO BE IN AFIB WITH RVR WITH RATES UP TO 190. FAWN COSTELLO AT THE BEDSIDE. ORDERS RECEIVED. 1000 CARDIZEM BOLUS GIVEN PER ORDER AND DRIP STARTED AT 10 MG/HR. AMIODARONE DRIP STARTED AND BOLUS INFUSING. 1100 CARDIZEM DRIP STOPPED FOR HYPOTENSION, NS BOLUS GIVEN AND CARDIZEM DRIP RESTARTED AFTER SYSTOLIC BP GREATER THAN 100 MMHG. PATIENT NOTED TO CONVERT INTERMITTENTLY TO NSR WITH RATES OF 60'S FOR A FEW SECONDS AND THEN BACK INTO AFIB WITH VENT RESPONSE IN THE 130'S TO 140'S. WILL CONTINUE TO MONITOR PATIENT'S HAS BEEN AT THE BEDSIDE SINCE 914, SPOKE WITH DR FLORES. KEPT INFORMED OF THE POC AND REASSURANCE GIVEN.
--- NOTE | 2021-02-19 12:00 | NUR ---
PATIENT CONVERTED TO NSR AT 1135. CARDIZEM AND AMIODARONE CONTINUE. WILL CONTINUE TO MONITOR.
--- NOTE | 2021-02-19 12:00 | NUR ---
RT CHEST TUBE TO WATER SEAL BY DR FLORES THIS AM. O2 TAPPERED TO KEEP O2 SAT GREATER THAN 91%.
--- NOTE | 2021-02-19 12:42 | EKG ---
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1950 Requested By: Julisa Austin Order Number: [id number] MD: Ty Montes Measurements Intervals [place] Rate: 186 P: [place]: QRS: 6 QRSD: 133 T: -2 QT: 296 QTc: 521 Interpretive Statements ATRIAL FIBRILLATION RATE, V RATE Atrial fibrillation with rapid ventricular response Right bundle branch block Baseline wander in lead(s) V2,V4,V5 Compared to ECG 02/19/2021 07:05:31 Sinus rhythm no longer present Electronically Signed On 02-19-2021 12:42:12 CDT by Ty Montes [email or web address] <ELECTRONICALLY SIGNED> By: Ty Montes MD, FACC 02/19/21 1242 0937 0937 Ty Montes MD, FAC /EPI
--- NOTE | 2021-02-19 15:57 | NUR ---
Chart review. S/P CABG. A-fib, 170's today. Discussed during los and unit rounds. no anticipated dc over the weekend. Will cont following as needed for dc needs.
--- NOTE | 2021-02-19 17:32 | NUR ---
PATIENT IS PROGRESSING TOWARDS OUTCOME GOALS. , TINY AT THE BEDSIDE AND INFORMED OF POC AND PATIENT STATUS. WILL CONTINUE TO MONITOR. PLEASE REFER TO ASSESSMENTS.
[2021-02-20] VITALS (10 sets, daily range): BP systolic 43–145; BP diastolic 23–71
--- NOTE | 2021-02-20 06:19 | NUR ---
ASSUMED CARE AT 1899. PT C/O PAIN AT CHEST TUBE SITE, GIVEN NORCO TWICE OVERNIGHT. 2114- GTT TURNED OFF. MAINTAINED SR OVENIGHT, HR IN 60'S, OCCASIONALLY DIPPING TO UPPER 50'S WHILE ASLEEP. DENIES CHEST PAIN. NO OUTPUT NOTED FROM CHEST TUBE. ANTICIPATE CARDIOLOGY SWITCHING TO PO AMIO TODAY, POSSIBLE TRANSFER TO , GRADUALLY PROGRESSING TOWARDS GOALS.
--- NOTE | 2021-02-20 11:47 | NUR ---
R. pleural chest tube D/C by Dr. Herbert at 1136
--- NOTE | 2021-02-20 13:01 | EKG ---
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1950 Requested By: Rogerio Adam Order Number: [id number] MD: Allan Rosas Measurements Intervals [place] Rate: 61 P: 12 IN: 163 QRS: -25 QRSD: 136 T: 39 QT: 560 QTc: 565 Interpretive Statements Sinus rhythm Multiple ventricular premature complexes IVCD, consider atypical RBBB Inferior infarct, old Lateral leads are also involved Compared to ECG 02/19/2021 09:37:14 Ventricular premature complex(es) now present Myocardial infarct finding now present Atrial fibrillation no longer present Electronically Signed On 02-20-2021 13:01:12 CDT by Allan Rosas [email or web address] <ELECTRONICALLY SIGNED> By: Allan Rosas MD 02/20/21 1301 0734 Allan Rosas MD /EPI
--- NOTE | 2021-02-20 17:47 | NUR ---
PATIENT PROGRESSING TOWARDS THE PLAN OF CARE. TX TO CCUAT APPROXIMATELY 1600.
[2021-02-21] VITALS (7 sets, daily range): BP systolic 119–147; BP diastolic 58–78
--- NOTE | 2021-02-21 08:13 | NUR ---
Pt is afebrile, a&o x4 who was experiencing mid-sternum pain from the incision and prn pain meds given with partial relief. Pt was able to sleep comfortably on the chair during shift with all vital signs within normal limit.
--- NOTE | 2021-02-21 20:11 | NUR ---
End shift note: Pt remained safe and comfortable. Pain controlled , Gluc convered, VSS. However, Pt started early in the morning with sustain episodes of tachycardia ( HR> 170). HCP was paged, new orders of aminiodarone drip received and adm. HR back WNL. Pt ambulated to restroom, scored [address] removal, sternal dressing harvest site of LLE intact are clean and intact. NO other concerns.
[2021-02-22 00:25] VITALS: BP 133/59
[2021-02-22 03:15] VITALS: BP 154/68
--- NOTE | 2021-02-22 03:51 | NUR ---
INCREASED PAIN WHEN COUGHING.PAIN MEDS GIVEN.SLEEPS ON THE RECLINER. ON AMIODARONE GTT.VOIDS PER URINAL.MONITOR SHOWS SR.POC CONTINUED.
[2021-02-22 08:00] VITALS: BP 159/70
[2021-02-22 11:30] VITALS: BP 144/63
[2021-02-22 15:00] VITALS: BP 152/73
--- NOTE | 2021-02-22 16:04 | NUR ---
Met with patient and . reports she has neck injury and unable to assist patient physically at home. 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 reports they are in discussion of care home. concerned patient to dc home and need assistance. They prefer transfer to [facility] acute rehab. Reviewed needing to qualify with insurance. Plan [facility] eval. Reviewed home with HH and outpatient therapy.
[2021-02-22 19:50] VITALS: BP 132/60
--- NOTE | 2021-02-22 20:15 | NUR ---
End shift note: Pt remained safe and comfortable, ambulated w/o complications, SR w/ bbb on tele, on amniodarone drip all day, vss, afebrile , all surgical sites assessed and no compliactions note, , dressings clean and intact, pain and gluc controlled, i&o's satisfactory.
[2021-02-23 04:46] VITALS: BP 128/57
[2021-02-23 07:20] VITALS: BP 128/62
[2021-02-23] MEDS ORDERED: ASA81BEC PO (09:16)
[2021-02-23] MEDS ORDERED: METOPROLOL SUCC25 M1 PO (09:16)
[2021-02-23] MEDS ORDERED: PACERONE 200 M200 M1 PO (09:16)
--- NOTE | 2021-02-23 11:06 | NUR ---
Nutrition followup: S/P NSTEMI, CABG on 02/15. Pt reports improving appetite since surgery now eating 60-70% of meals. Will D/C glucerna-pt agrees. Stable weights prior to admit. RD completed heart healty and diabetic diet review with pt and . See education log for details. Possible need for acute rehab at D/C. Low nutrition risk.
[2021-02-23 11:15] VITALS: BP 122/54
[2021-02-23 16:20] VITALS: BP 130/64
--- NOTE | 2021-02-23 18:56 | NUR ---
Spoke with patient and . concerned for patient to return home. She reports needs sx on neck and has had sx in past. She reports she cannot assist patient at home. She was leaving today for her covid vaccine and return today at 1500. She did not want rehab to [place] until she returned. Reviewed HH, skilled care with patient and . Jocelyn with [facility] met with patient and . Reviewed acute rehab. Patient is not a candidate. Discussed option of skilled care. Patient and discussed and agreeable to [place]. Reviewed HH list. They want any home health agency with bath aide. Attempted to call agencies but they are closed at [phone] the time /patient decided home with HH care. Updated phys
--- NOTE | 2021-02-23 19:14 | NUR ---
END SHIFT NOTE : PT REMAINED SAFE AND COMFORTABLE DURING THE LAST 3 HRS OF THE SHIFT, VERY PLEASANT , VSS, NO CONCERNS , O0N 2L OF O2 POC TO BE INITIATED.
[2021-02-23 21:12] VITALS: BP 159/75
[2021-02-24 03:50] VITALS: BP 105/59
[2021-02-24 05:02] LABS: HEMATOCRIT 29.5 % (42.0-52.0); HEMOGLOBIN 9.8 gm/dL (14.0-18.0); MCH 29.4 pg (26.0-34.0); MCHC 33.4 g/dL (28.0-37.0); MCV 88.2 fL (80.0-100.0); RBC 3.34 mil/uL (4.50-6.00); RDW 14.1 % (10.5-14.5); WBC 13.5 thou/uL (4.0-11.0)
[2021-02-24 05:17] LABS: CALCIUM 8.9 mg/dL (8.5-10.1); CREATININE 1.1 mg/dL (0.7-1.3); MAGNESIUM 1.9 mg/dL (1.8-2.4); POTASSIUM 4.7 mmol/L (3.5-5.1)
--- NOTE | 2021-02-24 06:00 | NUR ---
Pt. rested quietly at intervals during the night when checked on during frequent rounds. He has been up a few times during the night to have a bowel movement. Pt. finally passed a large brownish/green stool that was loose and also formed. His right hand is swollen where a peripheral iv is. The iv was dc'd last pm and right hand is pink and warm upon touch. There was also a small amount of pus present. Area was cleansed and Whit ARNDT was notified. Po pain med given for c/o sternum pain (see emar) with some relief noted.
[2021-02-24 08:00] VITALS: BP 110/62
[2021-02-24 10:54] VITALS: BP 110/62
[2021-02-24] MEDS ORDERED: CALTRATE-600 W1 EACH PO (13:01)
[2021-02-24] MEDS ORDERED: FERREX 150 PLU1 EAC1 PO (13:01)
[2021-02-24] MEDS ORDERED: METFORMIN HCL500 M3 PO (13:01)
[2021-02-24] MEDS ORDERED: COLACE 100 MG100 MG PO (13:01)
[2021-02-24] MEDS ORDERED: LIDOPATCH1 EACH TRANSDERM (13:01)
[2021-02-24] MEDS ORDERED: MUCUS RLF DM E1 EACH PO (13:01)
[2021-02-24] MEDS ORDERED: HYDROCODON-ACE1 EAC7 PO (13:01)
[2021-02-24 13:05] VITALS: BP 127/61
[2021-02-24] MEDS ORDERED: KEFLEX250 MG PO (15:38)
--- NOTE | 2021-03-01 10:17 | O ---
[facility] [place] [address] OPERATIVE REPORT Name: ANUJ RAMIRES Room #: 213-P [facility] IN M.R.#: [id number] Admission: 02/10/21 Attend Phys: Gael Saeed MD Discharge: 02/24/21 Date of : 52 Report #: [id number] THIS REPORT FOR: cc: Anthony Benítez MD, Kirk D. MD Forman, John M. MD ~ DATE OF SERVICE: 02/15/2021 PREOPERATIVE DIAGNOSIS: Coronary artery disease. POSTOPERATIVE DIAGNOSIS: Coronary artery disease. OPERATIONS: Coronary artery bypass x 5 including left internal mammary artery to left anterior descending artery, saphenous vein to diagonal, ramus intermedius, and marginal and in a Y fashion saphenous vein to posterior descending artery. SURGEON: Dwayne Herbert MD. HYDRAULIC ASSEMBLER: TRANG Villa. ANESTHESIA: General. INDICATIONS: The patient is a 70-year-old seen for Dr. Adam. The patient has unstable angina. Catheterization demonstrates severe ostial stenosis of LAD and ramus intermedius as well as disease in a left dominant circumflex and marginal arteries. Left ventricular function is satisfactory with mild aortic incompetence. FINDINGS AND TECHNIQUE: After general anesthesia was established, saphenous vein was harvested using an endoscopic approach and was prepared for use as a conduit. Exposure was obtained through median sternotomy. Left internal mammary artery was harvested from chest wall. Pericardial well was made. Cannulation sutures were placed. Heparin was given. Aorta was cannulated. Right atrium was cannulated. Cardioplegia needle was positioned in the aortic root. Retrograde cardioplegic catheter was placed in the coronary sinus. Cardiopulmonary bypass was established. Aorta was cross clamped. Antegrade and retrograde cardioplegia were given. Ice was poured into the pericardial well. The heart was stopped. During electromechanical arrest, the distal anastomoses were performed. An end-to-side anastomosis was made between vein and the posterior descending artery. This was a distal branch of the left dominant circumflex. Cold cardioplegia was given. A separate segment of vein was sewn in end-to-side [facility] [address] [place] [address] OPERATIVE REPORT Name: ANUJ RAMIRES [facility] Room #: 213-P [facility] IN M.R.#: [id number] Admission: 02/10/21 Attend Phys: Gael Saeed MD Discharge: 02/24/21 Date of : 52 Report #: [id number] fashion to the first branch of the large marginal. Cold cardioplegia was given. The same segment of vein was sewn in [id number] fashion to the ramus intermedius. This was a small vessel. Cold cardioplegia was given. The same segment of vein was sewn in [id number] fashion to second branch of the diagonal artery. Cold cardioplegia was given. Left internal mammary artery was sewn in end-to-side fashion to the left anterior descending artery. Patency of this vessel was checked with the temperature technique and the Doppler. Cold cardioplegia was given. One proximal anastomosis was performed between the proximal end of the vein to the diagonal, ramus, and marginal. Only one proximal was done at this point due to atherosclerotic plaque in the aorta. Warm retrograde cardioplegia was given followed by warm continuous blood to the coronary sinus. When this infusion was complete, the crossclamp was removed. De-airing maneuvers were performed. The proximal end of the vein to the PDA was then sewn to the side of the other vein graft. Flow was then reestablished through all the bypass grafts. Distal anastomoses were inspected and found to be satisfactory. As the patient warmed, nice cardiac activity resumed. Chest tubes and pacing wires were placed. A marker was placed around the proximal anastomoses. When the patient was warmed, he was weaned from cardiopulmonary bypass. Venous cannula was removed. Protamine was given, the aortic cannula was removed. Flows were then measured in the bypass grafts. When hemostasis was satisfactory, chest was irrigated with antibiotic solution and closed in the usual fashion. The patient was taken to the Intensive Care Unit in good condition having tolerated the procedure well. All counts were reported as correct. <ELECTRONICALLY SIGNED> By: Dwayne Herbert MD 03/01/21 1017 1526 1802 Dwayne Herbert MD /nt
== END 2021-02-24 17:26 | disposition home health service (06) | DRG 233 ==
LOC: ER 21:53 → EROBS 23:27 → 2N 23:27 → SICU 02-15 08:00 → ICU 02-15 11:15 → 2N 02-20 17:02
PROVIDERS: Emergency Medicine; Internal Medicine Cardiovascular Disease; Nurse Practitioner Family; Physician Assistant; Surgery Vascular Surgery; ADMIT Internal Medicine; ATTEND Internal Medicine
PROC: B2151ZZ Fluoroscopy of Left Heart using Low Osmolar Contrast (ICD-10-PCS; principal; 2021-02-11)
PROC: B2111ZZ Fluoroscopy of Multiple Coronary Arteries using Low Osmolar Contrast (ICD-10-PCS; principal; 2021-02-11)
PROC: 4A023N7 Measurement of Cardiac Sampling and Pressure, Left Heart, Percutaneous Approach (ICD-10-PCS; principal; 2021-02-11)
PROC: 06BQ4ZZ Excision of Left Saphenous Vein, Percutaneous Endoscopic Approach (ICD-10-PCS; 2021-02-15)
PROC: 021309W Bypass Coronary Artery, Four or More Arteries from Aorta with Autologous Venous Tissue, Open Approach (ICD-10-PCS; 2021-02-15)
PROC: 02HV33Z Insertion of Infusion Device into Superior Vena Cava, Percutaneous Approach (ICD-10-PCS; 2021-02-15)
PROC: 02100Z9 Bypass Coronary Artery, One Artery from Left Internal Mammary, Open Approach (ICD-10-PCS; 2021-02-15)
PROC: 5A1221Z Performance of Cardiac Output, Continuous (ICD-10-PCS; 2021-02-15)
PROC: 0W9930Z Drainage of Right Pleural Cavity with Drainage Device, Percutaneous Approach (ICD-10-PCS; 2021-02-17)
DX: I21.4 Non-ST elevation (NSTEMI) myocardial infarction (principal); I50.43 Acute on chronic combined systolic (congestive) and diastolic (congestive) heart failure; J93.9 Pneumothorax, unspecified; I25.110 Atherosclerotic heart disease of native coronary artery with unstable angina pectoris; E11.9 Type 2 diabetes mellitus without complications; I10 Essential (primary) hypertension; E78.5 Hyperlipidemia, unspecified; F17.210 Nicotine dependence, cigarettes, uncomplicated; E78.1 Pure hyperglyceridemia; R53.81 Other malaise; D64.9 Anemia, unspecified; K59.00 Constipation, unspecified; M19.90 Unspecified osteoarthritis, unspecified site; I48.0 Paroxysmal atrial fibrillation; Z20.822 Contact with and (suspected) exposure to COVID-19; Z90.49 Acquired absence of other specified parts of digestive tract; Z88.2 Allergy status to sulfonamides; Z88.8 Allergy status to other drugs, medicaments and biological substances; Z83.3 Family history of diabetes mellitus; Z82.49 Family history of ischemic heart disease and other diseases of the circulatory system; Z82.3 Family history of stroke; Z71.6 Tobacco abuse counseling; Z79.82 Long term (current) use of aspirin; Z79.899 Other long term (current) drug therapy
CPT/HCPCS: 10078; 10081; 47000; 47001; 47002; 47297; 48889; 50010; 50249; 50668; 51301; 52131; 52259; 52287; 53327; 53358; 54118; 56455; 56524; 56525; 56526; 56527; 56528; 56531; 56534; 56668; 56719; 56760; 56898; 57093; 57167; 58585; 58856; 58901; 58918; 62110; 62950; 65002; 65003; 65020; 65090; 65120; 65135; 83006

== ENCOUNTER → 2021-04-13 | Outpatient (CLI) | payer OTHER ==
[~2021-04-13] MED LIST: ASA81BEC PO; CALTRATE-600 W1 EACH PO; COLACE 100 MG100 MG PO; FERREX 150 PLU1 EAC1 PO; HYDROCODON-ACE1 EAC7 PO; KEFLEX250 MG PO; LIDOPATCH1 EACH TRANSDERM; LIPITOR80 MG PO; LISINOPRIL20 MG PO; METFORMIN HCL500 M3 PO; METFORMIN HCL500 MG PO; METOPROLOL SUCC25 M1 PO; MUCUS RLF DM E1 EACH PO; PACERONE 200 M200 M1 PO
== END ==
LOC: SJCVC 10:29
PROVIDERS: ATTEND Internal Medicine Cardiovascular Disease
DX: I25.10 Atherosclerotic heart disease of native coronary artery without angina pectoris (principal); I48.0 Paroxysmal atrial fibrillation; I10 Essential (primary) hypertension; E78.00 Pure hypercholesterolemia, unspecified; E78.5 Hyperlipidemia, unspecified; Z72.0 Tobacco use; Z88.8 Allergy status to other drugs, medicaments and biological substances; Z72.89 Other problems related to lifestyle; Z79.82 Long term (current) use of aspirin; Z79.899 Other long term (current) drug therapy